=== PATIENT | male | born 1965 | race Caucasian/White ===

== ENCOUNTER → 2019-05-25 | Outpatient (CLI) | payer OTHER ==
--- NOTE | 2019-05-26 21:06 | SLE ---
[facility] [place] [address] POLYSOMNOGRAPHY STUDY Name: ELISSA GALEANA Room #: [facility]#: [id number] Admission: 05/25/19 ������������������ Attend Phys: Barrera Ordoñez MD Discharge: ������������������ Date of : 69 Report #: [id number] THIS REPORT FOR: //name// CC: Barrera Maldonado [facility] DATE OF SERVICE: 05/25/2019 SLEEP STUDY ATTENDING PHYSICIAN: Dr. Chuck Cummings The patient is 53 years old, who weighs 291 pounds with a BMI of 43. The patient had a home sleep study and was found to have severe AICHA at an AHI of 45 per hour. The patient was referred back for in-lab titration study. During the night study, the patient spent 479 minutes in bed and slept for 443 minutes with a sleep efficiency of 94%. Sleep latency was 7.2 minutes with a REM latency of 63 minutes. Overall, sleep architecture showed normal stage 1 sleep, increased stage 2 sleep, absent slow wave and normal REM sleep. EKG monitoring revealed an average heart rate of 80 beats per minute. No sustained arrhythmias observed. Mild PLMS were seen at an index of 8 per hour and 2 per hour caused EEG arousals. The patient was started on CPAP at a pressure of 5 cm water and titrated up to 15 cm water. At the final pressure, the patient slept for 291 minutes including 85 minutes of supine REM sleep. The patient's AHI significantly improved to 6 per hour and oxygen saturation remained above 90%. I would recommend 16 cm water as a final pressure. IMPRESSION: 1. Sleep apnea diagnosed previously. 2. No clinically significant periodic limb movements. RECOMMENDATIONS: 1. CPAP at 16 cm water should be used on a nightly basis. 2. Follow up in 4-6 weeks to assess compliance with CPAP and to document clinical improvement. 3. Weight loss is strongly advised. 4. Avoid [employer] depressants. [facility] [address] [place] [address] POLYSOMNOGRAPHY STUDY Name: KERVINELISSA Abraham Room #: [facility]#: [id number] Admission: 05/25/19 ������������������ Attend Phys: Barrera Ordoñez MD Discharge: ������������������ Date of : 69 Report #: [id number] 5. Cautioned regarding driving or operating heavy machinery until symptoms of sleep apnea resolve with the use of CPAP. ��������������������������������������������� <ELECTRONICALLY SIGNED> ���������������������������������������� By: Barrera Ordoñez MD ��������������������������������������������� 05/26/19 [id number] 18 Barrera Ordoñez MD /nt
== END ==
LOC: SLEEPLAB 05-18 12:27
DX: G47.30 Sleep apnea, unspecified (principal)